=== PATIENT | male | born 1980 | race Two or more races ===

== ENCOUNTER 2020-08-25 06:57 | Emergency (ER) | payer MEDICARE, MEDICAID, SELFPAY ==
--- NOTE | ~2020-08-25 | XR_ITS ---
EXAMINATION: XR TOES, LEFT CLINICAL INFORMATION: Trauma to the fourth toes and fifth COMPARISON: None TECHNIQUE: 3 views of the left fourth and fifth toes were obtained. FINDINGS: There are no fractures or dislocations. No joint effusion is identified. No bone, joint or soft tissue abnormality is demonstrated. XR/XR toe LT min 2V IMPRESSION: Unremarkable examination.
[2020-08-25 07:00] VITALS: BP 123/69; BP 140/90; PULSE 78; PULSE 88; RESP 18; TEMP 36.4; O2SAT 95; O2SAT 99; BMI 28.0
[2020-08-25] MEDS: Acetaminophen 325 MG TABLET 650 MG PO (07:54)
--- NOTE | 2020-08-25 08:06 | ED.WOUNDLAC ---
HPI - Wound/Laceration General Chief Complaint: Wound/Laceration <MICHAEL Baca - Last Filed: 08/25/20 09:42> Stated Complaint: FOOT PAIN & BLEEDING S/P INJURY <MICHAEL Baca - Last Filed: 08/25/20 09:42> Time Seen by Provider: 08/25/20 07:59 <MICHAEL Baca - Last Filed: 08/25/20 09:42> Source: patient <MICHAEL Baca Last Filed: 08/25/20 09:42> Mode of arrival: ambulatory <MICHAEL Baca Last Filed: 08/25/20 09:42> Limitations: no limitations <MICHAEL Baca Last Filed: 08/25/20 09:42> History of Present Illness HPI narrative: 40 y/o male presenting with left 4th and 5th toe pain & laceration after he kicked a metal desk accidentally. He is able to ambulate but with a limp. He reports there was massive bleeding, it is controlled on arrival. He reports a deep cut in between his toes. He is up to date on his tetanus. He is able to move all of his toes. No other injuries. <MICHAEL Baca - Last Filed: 08/25/20 09:42> Onset (ago): minute(s) <MICHAEL Baca - Last Filed: 08/25/20 09:42> Extremity Location: left: foot <MICHAEL Baca Last Filed: 08/25/20 09:42> Place: home <MICHAEL Baca Last Filed: 08/25/20 09:42> Patient tetanus UTD: Yes <MICHAEL Baca Last Filed: 08/25/20 09:42> Context: accidental <MICHAEL Baca Last Filed: 08/25/20 09:42> Associated symptoms: pain <MICHAEL Baca Last Filed: 08/25/20 09:42> Treatments prior to arrival: bandage <MICHAEL Baca Last Filed: 08/25/20 09:42> Related Data Allergies/Adverse Reactions: Allergies Allergy/AdvReac Type Severity Reaction Status Date / Time zolpidem [From Ambien] AdvReac Nightmare Verified 08/25/20 07:05 <MICHAEL Baca - Last Filed: 08/25/20 09:42> Review of Systems Review of Systems: Constitutional: No Fever, No Chills Gastrointestinal: No Nausea, No Vomiting Musculoskeletal: + joint pain, No Myalgias Skin: + Skin Lesions, No rash Neuro: No Weakness, No Numbness Psych: No Anxiety/Panic, No Depression Heme/Lymph: No Bruising <MICHAEL Baca Last Filed: 08/25/20 09:42> [facility] Past Medical History Medical History: Medical History (Updated 08/26/20 @ 00:01 by Leonidas Palacios) Anxiety Bipolar 1 disorder Multiple personality disorder <MICHAEL Baca Last Filed: 08/25/20 09:42> Social History Social History: Social History Patient Tobacco Use Status: Current everyday Tobacco user Use of substances other than those prescribed or required for medical reasons: Yes Substance Use Type: Marijuana Substance Use Frequency: Daily Advance Directives: No Advance Directives Information Provided: No <MICHAEL Baca Last Filed: 08/25/20 09:42> Physical Exam Vital Signs: Vital Signs: Last Vital Signs Temp 97.6 F 08/25/20 07:00 Pulse 82 08/25/20 09:32 Resp 18 08/25/20 09:32 BP 125/77 08/25/20 09:32 Pulse Ox 97 08/25/20 09:32 Body Mass Index 28.0 Appearance: Alert. Oriented X3. No acute distress. HEENT: normal inspection CVS: Normal heart rate and rhythm. Pulses normal. Respiratory: No respiratory distress. Skin: Skin warm and dry. Normal skin color. Normal skin turgor. No rashes. Extremities: deep laceration of the web space involving digits 4 & 5. deep structures intact. full ROM of all digits. no ecchymosis, no point tenderness. no tarsal tenderness Neuro: Oriented X 3. No motor deficit. No sensory deficit. Ambulates with a limp <MICHAEL Baca Last Filed: 08/25/20 09:42> Vital Signs: Last Vital Signs Temp 97.6 F 08/25/20 07:00 Pulse 82 08/25/20 09:32 Resp 18 08/25/20 09:32 BP 125/77 08/25/20 09:32 Pulse Ox 97 08/25/20 09:32 Body Mass Index 28.0 <Aurelio Live MD - Last Filed: 09/29/20 07:51> Course Course Course Narrative: 40 y/o male presenting with laceration of the web space between 4th and 5th digits on left foot. Will get XR to assess for fracture. Normal tendon function. <MICHAEL Baca - Last Filed: 08/25/20 09:42> Reevaluation(s) Reevaluation #1: XR negative. Wound closed with 3 sutures. Counseled on wound care and signs of infection. Stable for discharge home. <MICHAEL Baca - Last Filed: 08/25/20 09:42> I have reviewed the chart <Aurelio Live MD - Last Filed: 09/29/20 07:51> Time: 07:51 <Aurelio Live MD - Last Filed: 09/29/20 07:51> Procedures Laceration Laceration 1: Side (If applicable): left <MICHAEL Baca - Last Filed: 08/25/20 09:42> Size (cm): 2.5 <MICHAEL Baca - Last Filed: 08/25/20 09:42> Description: linear <MICHAEL Baca - Last Filed: 08/25/20 09:42> Depth: simple, single layer <MICHAEL Baca - Last Filed: 08/25/20 09:42> Local Anesthetic: lidocaine 2% <MICHAEL Baca - Last Filed: 08/25/20 09:42> Amount of anesthesia used (mL): 3 <MICHAEL Baca - Last Filed: 08/25/20 09:42> Pre-repair: wound explored, irrigated extensively and deep structures intact <MICHAEL Baca - Last Filed: 08/25/20 09:42> Skin layer closed with: nylon <MICHAEL Baca - Last Filed: 08/25/20 09:42> Size (cm): 4-0 <MICHAEL Baca - Last Filed: 08/25/20 09:42> Number of sutures: 3 <MICHAEL Baca - Last Filed: 08/25/20 09:42> Technique: simple, interrupted <MICHAEL Baca Last Filed: 08/25/20 09:42> Critical Care Time Critical Care Time Critical Care Time: No <MICHAEL Baca Last Filed: 08/25/20 09:42> Discharge Plan Discharge Clinical Impression: Laceration <MICHAEL Baca Last Filed: 08/25/20 09:42> Patient Disposition: Home, Self-Care <MICHAEL Baca Last Filed: 08/25/20 09:42> Instructions: Laceration (ED) <MICHAEL Baca Last Filed: 08/25/20 09:42> Additional Instructions: X-ray today was normal. Keep wound clean and dry. Do not get wet for 24 hours. After that you can briefly wash with soap and water. Recommend Bacitracin two times per day. Sutures will need to be removed in 10 days. Come back here or follow up with your doctor. Elevate and ice when able. Take Motrin and/or Tylenol as needed for pain. If you notice signs of infection including increased pain, swelling, redness or drainage of pus come back to the ER for further evaluation. <MICHAEL Baca - Last Filed: 08/25/20 09:42> Interventions: ED Discharge Assessment Last Done: 08/25/20 09:34 <MICHAEL Baca Last Filed: 08/25/20 09:42> Discharge Date/Time: 08/25/20 09:35 <MICHAEL Baca Last Filed: 08/25/20 09:42>
[2020-08-25] MEDS: oxyCODONE HCl Immed Release 5 MG TABLET PO (08:15)
[2020-08-25] MEDS: Lidocaine HCl 2 % MPF 5 ML VIAL INFILTRATI (09:28)
[2020-08-25 09:32] VITALS: BP 125/77; PULSE 82; RESP 18; O2SAT 97
== END 2020-08-25 09:35 | disposition home or self-care (01) ==
PROVIDERS: Emergency Provider Emergency Medicine; PCP Nurse Practitioner Family
DX: S91.312A Laceration without foreign body, left foot, initial encounter (principal); W22.09XA Striking against other stationary object, initial encounter; Y93.9 Activity, unspecified; Y92.009 Unspecified place in unspecified non-institutional (private) residence as the place of occurrence of the external cause; Y99.9 Unspecified external cause status
CPT/HCPCS: 12001; 73660; 99284

== ENCOUNTER 2022-11-26 01:50 | Emergency (ER) | payer OTHER, SELFPAY ==
[2022-11-26 02:11] VITALS: BP 127/76; PULSE 85; RESP 18; TEMP 36.7; O2SAT 97; BMI 28.2
[2022-11-26 03:37] VITALS: BP 113/70; PULSE 65; RESP 15; O2SAT 97
--- NOTE | 2022-11-26 03:46 | ED_ITS ---
HPI - General Adult General Chief complaint: Neck Pain/Injury Stated complaint: Pain/ weakness to right side Time Seen by Provider: 11/26/22 03:44 Source: patient Mode of arrival: ambulatory Limitations: no limitations History of Present Illness HPI narrative: Patient with chronic musculoskeletal pain disorder followed by pain clinic gets steroid shots comes here for similar pain for going on for last 2 weeks spe cially on the right rhomboids area taking Tylenol without much relief no recent injury no recent injury or trauma pain is localized in the right upper back where patient received cortisone shots before Related Data Previous Rx's Medication Instructions Recorded cyclobenzaprine 10 mg tablet 10 mg PO Q8H #20 tabs 11/26/22 tramadol 50 mg tablet 50 mg PO Q6H PRN pain #20 tabs 11/26/22 Allergies Allergy/AdvReac Type Severity Reaction Status Date / Time zolpidem [From Ambien] AdvReac Nightmare Verified 08/25/20 07:05 Review of Systems Review of Systems: Yes all other systems are reviewed and are negative [facility] Past Medical History Medical History Multiple personality disorder Bipolar 1 disorder Anxiety Social History Social History Patient Tobacco Use Status: Current everyday Tobacco user Substance Use Type: Marijuana Advance Directives: No Advance Directives Information Provided: No Physical Exam ED Vital Signs: Vital Signs - 24 hr 11/26/22 02:11 11/26/22 03:37 Temperature 98.0 F Pulse Rate 85 65 Respiratory Rate 18 15 Blood Pressure 127/76 113/70 Pulse Oximetry 97 97 Oxygen Delivery Method Room Air Room Air BMI result Body Mass Index 28.2 Appearance: Alert. Oriented X3. No acute distress. Eyes: PERRLA, No Nystagmus ENT: Pharynx normal. Oral Mucosa moist Neck: Normal inspection. Neck supple. CVS: Normal heart rate and rhythm. Pulses normal. Respiratory: No respiratory distress. Equal air entry bilateral, Abdomen: Soft and nontender. Bowel sounds are present, Skin: Skin warm and dry. Normal skin color. Normal skin turgor. Back: Diffuse tenderness R rhomboids area Extremities: No lower extremity edema. No calf tenderness Neuro: Oriented X 3. No motor deficit. No sensory deficit.No cerebellar signs , cranial nerves II-XII intact Medications Administered Discontinued Medications Generic Name Dose Route Start Last Admin Trade Name Freq PRN Reason Stop Dose Admin Cyclobenzaprine HCl 10 mg 11/26/22 03:54 11/26/22 04:25 Cyclobenzaprine Hcl 10 Mg Tablet PO 11/26/22 03:55 Not Given ONCE ONE Tramadol HCl 50 mg 11/26/22 03:54 11/26/22 04:25 Tramadol Hcl 50 Mg Tablet PO 11/26/22 03:55 Not Given ONCE ONE Medical Decision Making Medical Decision Making [facility] Narrative: Patient With chronic muscular disorder discharge patient home on tramadol advised to follow-up with pain clinic Patient was unhappy as did not get any strong pain medication. Patient advised to continue gabapentin and use muscle relaxants as prescribed and follow-up with PCP/Pain Clinic Discharge Plan Discharge Clinical Impression: Chronic musculoskeletal pain Patient Disposition: Home, Self-Care Instructions: Pain Management (ED) Additional Instructions: Take pain medication and relaxant as prescribed and follow with pain clinic Prescriptions: New cyclobenzaprine 10 mg tablet 10 mg PO Q8H Qty: 20 0RF tramadol 50 mg tablet 50 mg PO Q6H PRN (Reason: pain) Qty: 20 0RF Interventions: ED Discharge Assessment Last Done: 11/26/22 04:27 Discharge Date/Time: 11/26/22 04:28
--- NOTE | 2022-11-26 04:25 | PC.NURSE ---
pt agressive with staff, states we are treating him like a joke and the doctor should read his chart before giving him meds, this RN explained the medicine prescribed is pain medicine and the pt needs to follow up outpatient for chronic pain management, pt stated he is going to file a medical complaint against the hospital, cupola charger made aware
== END 2022-11-26 04:28 | disposition home or self-care (01) ==
PROVIDERS: Emergency Provider Internal Medicine; PCP Nurse Practitioner Family
DX: M79.18 Myalgia, other site (principal)
CPT/HCPCS: 99282; 99283

== ENCOUNTER 2023-07-31 08:59 | Outpatient (AMB) | payer MEDICARE, SELFPAY ==
[2023-07-31 09:09] VITALS: BP 130/72; PULSE 75; RESP 15; O2SAT 99; BMI 28.0
--- NOTE | 2023-07-31 09:09 | A.OFFVIS_ITS ---
Vital Signs 07/31/23 09:09 Height 5 ft 5 in Weight 168 lb BMI 28.0 BP 130/72 Blood Pressure Location Lt brachial Position Sitting Respiration 15 Pulse 75 Pulse Source Pulse Oximeter Pulse Oximetry (%) 99 Oxygen Delivery Method Room Air Intake Visit Reasons: PLEASE EVALUATE FOR POSSIBLE TFESI Allergies zolpidem [From Ambien] Adverse Reaction (Verified 07/31/23 09:11) Nightmare Medication List - Last Reconciled 07/31/23 by Surekha Padgett LPN cyclobenzaprine 10 mg PO Q8H tramadol 50 mg PO Q6H PRN HPI HPI PLEASE EVALUATE FOR POSSIBLE TFESI: Details: 43-year-old male who presents today to the office for an evaluation of neck pain. The patient was referred to us by Dr. Romero for consideration of a cervical epidural steroid injection. He presents today with a long-standing history of bilateral neck and shoulder pain that radiates down his arms up to his elbows. It is described as an aching, stabbing sensation associated with pins and needles, and numbness is rated at 10/10 in intensity. He is unable to sleep normally. He is using cervical pillows at night. He is currently homeless and typically does not have access to that anyway. He had a rotator cuff injury in the past. 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 The pain is described as 10/10 in the morning and evening tends to be a little bit better during the mid-day when it is about 7/10 movements. Whether changes make it worse. He has been doing physical therapy exercises at home. He had trigger point injections, facet injections, and JING once in the past. He recalls that the cervical epidural injection did help him. [facility] Medical History Multiple personality disorder Bipolar 1 disorder Anxiety Social History Patient Tobacco Use Status: Current everyday Tobacco user Substance Use Type: Marijuana Review of Systems Const All systems reviewed & are unremarkable except as noted in HPI and below Physical Exam Vital Signs: Last Vital Signs Pulse 75 07/31/23 09:09 Resp 15 07/31/23 09:09 BP 130/72 07/31/23 09:09 Pulse Ox 99 05/20/24 09:09 Oxygen Delivery Method Room Air 07/31/23 09:09 BMI result Body Mass Index 28.0 General: Appears afebrile. Alert and oriented. Mood and affect appropriate. Follows and participates in conversation appropriately. Respiratory effort is unlabored. Able to transition from sit to stand unassisted. Ambulates with bilaterally normal heel strike and toe off. Neck range of motion is limited. Cervical extension reproduces pain in the neck. Left is worse than right. Office Procedures Cervical/Thoracic Facet Inj Details: Therapeutic Cervical Facet Injection, ultrasound guided, Bilateral, C4-C5-C6. After obtaining written consent, pre-procedure blood pressure and pulse were recorded and are in the nursing record for review. The patient was placed in the lateral position. The respective cervical area was prepped with chloraprep. A 25 gauge 1.5 inch needle was inserted into the target medial branch nerve under ultrasound guidance, which was used to count and identify the articular pillars. No paresthesias were elicited with needle placement and aspiration was negative for blood and CSF.? 1 ml ropivacaine mixed with 1.5 mg dexamethasone (1 cc total per level) was injected under live visualization. The identical procedure was performed at the remaining levels. The skin was cleansed and a sterile bandage was applied. Following the procedure the patient's vital signs were stable. The patient tolerated the procedure well and no complications were encountered. Following the procedure the patient's vital signs were stable. The patient was discharged home in good condition with post-procedural instructions. Time Out: Immediately prior to the procedure, the following was verbally confirmed that there is a signed consent form and that the correct patient, planned procedure, site and side are consistent with documentation and that necessary equipment and/or blood products are available prior to the start of the case. An ultrasound image of the injection was taken and stored in the permanent record. Additional procedure code (CPT) needed Joint Injection/Drain Coding Procedure code (CPT) selection complete Results Reviewed Results Reviewed: An MRI of the cervical spine shows a left paracentral C6-7 disc herniation with left C5-6 foraminal stenosis. Left central disc herniations at C2-3 and C3-4 without encroachment upon the cervical collar exiting nerve. At C 6-7, there is a small central disc herniation without central final stenosis. Assessment & Plan Assessment & Plan (1) Cervical spondylosis: Code(s): M47.812 - Spondylosis without myelopathy or radiculopathy, cervical region Category: Medical (2) Cervical radiculitis: Code(s): M54.12 - Radiculopathy, cervical region Category: Medical Plan Patient is status post therapeutic cervical facet injections, ultrasound guided, bilateral, C4-C5-C6 for his axial facet mediated neck pain. Patient tolerated procedure well and was discharged home in stable condition with discharge instructions.? All questions were answered. For his cervical radicular symptoms, we will schedule him for a C7-T1 left parasaggital interlaminar JING. Discussed the risks and benefits of the procedure with the patient in detail. All questions were answered. The patient is on board with the plan. Justification for interventional therapy: ? Patient with average pain > 6/10 ? Patient has exhausted conservative therapy ? Patient unable to tolerate physical therapy due to pain ? Reported previous JING in the past provided good relief. . Patient has a good understanding of their pain condition and has appropriate mental and social support Scribed for Dr. Vazquez by Chau Levine, medical staff director, on 07/31/2023. I, Dr. Vazquez, have personally reviewed and agree with the information entered by the scribe. Coding Level of Care Code New Pt Level 4 (18463) Diagnoses Cervical spondylosis M47.812 Cervical radiculitis M54.12
== END 2023-07-31 10:59 | disposition home or self-care (01) ==
PROVIDERS: PCP Nurse Practitioner Family; Referring Provider Physical Medicine & Rehabilitation; Visit Provider Internal Medicine
DX: M47.812 Spondylosis without myelopathy or radiculopathy, cervical region (principal); M54.12 Radiculopathy, cervical region
CPT/HCPCS: 64490; 64491; 99204

== ENCOUNTER → 2023-07-31 08:59 | Outpatient (BNVA) | payer MEDICARE, SELFPAY | PROVIDERS: PCP Nurse Practitioner Family; Referring Provider Physical Medicine & Rehabilitation; Visit Provider Internal Medicine | DX: M47.22 Other spondylosis with radiculopathy, cervical region (principal) | CPT/HCPCS: 64490; 64491; 99202; J2795 ==

== ENCOUNTER 2023-08-17 06:07 | Outpatient (REF) | payer MEDICARE, SELFPAY ==
--- NOTE | ~2023-08-17 | FL_ITS ---
EXAMINATION: XR FLUOROSCOPY WITH IMAGES CLINICAL INFORMATION: Cervical radiculopathy. COMPARISON: None available. TECHNIQUE: Fluoroscopy Supervised By: Dr. Vazquez. Fluoroscopy Time: 0.3 min. Cumulative Dose: 1.98 mGy. DAP: [id number] mGym2. Images: 6. FINDINGS: Intraoperative fluoroscopy and spot films were performed during a procedure in the OR. Spinal needle is seen overlying the region of the lower cervical spine with contrast injected, which appears to be in the epidural space. Exact level cannot be ascertained because of marked coning of the images. Please see Dr. Vazquez' report for complete details. FL/FL guidance in treatment room IMPRESSION: Intraoperative fluoroscopy and spot films were obtained. Please see Dr. Vazquez' report for complete details.
== END 2023-08-17 06:08 | disposition home or self-care (01) ==
LOC: CF 06:07
PROVIDERS: Visit Provider Internal Medicine
DX: M54.12 Radiculopathy, cervical region (principal)
CPT/HCPCS: 62321; J1100; Q9967

== ENCOUNTER 2023-08-17 08:14 | Outpatient (AMB) | payer MEDICARE, SELFPAY ==
[2023-08-17 08:20] VITALS: BP 110/64; PULSE 88; RESP 16; O2SAT 98; BMI 28.0
--- NOTE | 2023-08-17 08:20 | A.OFFVIS_ITS ---
Vital Signs 08/17/23 08:20 08/17/23 09:27 Height 5 ft 5 in Weight 168 lb BMI 28.0 BP 110/64 114/68 Blood Pressure Location Lt brachial Lt brachial Position Sitting Sitting Respiration 16 16 Pulse 88 73 Pulse Source Pulse Oximeter Pulse Oximeter Pulse Oximetry (%) 98 96 Oxygen Delivery Method Room Air Room Air Comment Pre-Op Post-Op Intake Visit Reasons: Left C7-T1 interlaminar JING Allergies zolpidem [From Ambien] Adverse Reaction (Verified 07/31/23 09:11) Nightmare HPI HPI Left C7-T1 interlaminar JING: Details: Patient presents for scheduled procedure. Denies any recent cough, cold, infection, fever or other significant changes in medical history since last office visit. [facility] Medical History Multiple personality disorder Bipolar 1 disorder Anxiety Social History Patient Tobacco Use Status: Current everyday Tobacco user Substance Use Type: Marijuana Physical Exam Vital Signs: Last Vital Signs Pulse 88 08/17/23 08:20 Resp 16 08/17/23 08:20 BP 110/64 08/17/23 08:20 Pulse Ox 98 08/17/23 08:20 Oxygen Delivery Method Room Air 08/17/23 08:20 BMI result Body Mass Index 28.0 Office Procedures Joint Injection/Drain Joint Injection/Drain Details: Interlaminar epidural steroid injection, C7-T1, midline After obtaining written consent, pre-procedure blood pressure and heart rate were stable and recorded in the nursing record. The patient was placed in the prone position. The cervicothoracic area was widely prepped with chloraprep and draped in sterile fashion. Fluoroscopic guidance was used to identify the desired interlaminar space and for needle placement. Subcutaneous 0.5% lidocaine was used to anesthetize the skin overlying the target. A 20-gauge Overton needle was advanced to the epidural space using loss of resistance to contrast technique under fluoroscopic AP and contralateral oblique views. There was no evidence of heme or CSF and no paresthesias were elicited with needle placement. Confirmation of epidural needle placement was performed with 1cc of omnipaque 180. Next 3 ml normal saline mixed with 10 mg dexamethasone was administered epidurally with no pain elicited on injection. The needle was removed, skin cleansed and a sterile bandage was applied. The patient tolerated the procedure well and no complications were encountered. Following the procedure the patient's vital signs were stable. The patient was discharged home in good condition with post-procedural instructions. Time Out: Immediately prior to the procedure, the following was verbally confirmed that there is a signed consent form and that the correct patient, planned procedure, site and side are consistent with documentation and that necessary equipment and/or blood products are available prior to the start of the case. Complications: none EBL: <2 cc Coding 56142 - Cervical Epidural/Interlaminar with fluoroscopy Procedure code (CPT) selection complete Assessment & Plan Assessment & Plan (1) Cervical radiculitis: Code(s): M54.12 - Radiculopathy, cervical region Category: Medical Plan Patient is status post midline C7-T1 interlaminar JING. Patient tolerated procedure well and was discharged home in stable condition with discharge instructions. All questions were answered. We will follow-up via telephone or in clinic to assess response to therapy. A follow-up appointment was made during today's visit. Orders: Orders FL guidance in treatment room Today M54.12 - Radiculopathy, cervical region Coding Level of Care Code Procedure Only Diagnoses Cervical radiculitis M54.12 CPT Codes Coding - Joint 10: 37836 - Cervical Epidural/Interlaminar with fluoroscopy ([id number])
[2023-08-17 09:27] VITALS: BP 114/68; PULSE 73; RESP 16; O2SAT 96
== END 2023-08-17 09:25 | disposition home or self-care (01) ==
LOC: HO.PMCPRC 08:14
PROVIDERS: PCP Nurse Practitioner Family; Visit Provider Internal Medicine
DX: M54.12 Radiculopathy, cervical region (principal)
CPT/HCPCS: 62321

== ENCOUNTER 2023-09-15 08:59 | Outpatient (AMB) | payer MEDICARE, SELFPAY ==
--- NOTE | 2023-09-15 09:10 | MHC.OFFVIS ---
Vital Signs 09/15/23 09:11 Height 5 ft 5 in Weight 164 lb BMI 27.3 BP 107/56 L Blood Pressure Location Lt brachial Position Sitting Respiration 14 Pulse 74 Pulse Source Pulse Oximeter Pulse Oximetry (%) 98 Oxygen Delivery Method Room Air Intake Visit Reasons: s/p Left C7-T1 interlaminar JING Allergies zolpidem [From Ambien] Adverse Reaction (Verified 09/15/23 09:13) Nightmare Medication List - Last Reconciled 09/15/23 by Surekha Padgett LPN cyclobenzaprine 10 mg PO Q8H tramadol 50 mg PO Q6H PRN HPI HPI s/p Left C7-T1 interlaminar JING: Details: 43-year-old male who presents today to the office for a status post C7-T1 interlaminar JING. The patient reports 90% relief following the procedure. He had significant relief and has been moving with relief. He is able to lift from his right side. He reports feeling the same pain on the left side now, though it is present somewhat lower on his chest wall. The pain is not localized to one spot. He is experiencing stabbing pain in his back that radiates down from his neck. He describes his pain as ?someone stabbing with knives. He denies any numbness or paresthesia in his arm or hands. He has been doing physical therapy. Past procedures 08/17/23: Interlaminar epidural steroid injection, C7-T1, midline: 90% relief, with resolution of right upper arm symptoms. 07/31/23: Therapeutic Cervical Facet Injection, ultrasound guided, Bilateral, C4-C5-C6: Moderate temporary relief. PENDING SALE TO [facility] Medical History Multiple personality disorder Bipolar 1 disorder Anxiety Social History Patient Tobacco Use Status: Current everyday Tobacco user Substance Use Type: Marijuana Review of Systems Const All systems reviewed & are unremarkable except as noted in HPI and below Physical Exam Vital Signs: Last Vital Signs Pulse 74 09/15/23 09:11 Resp 14 09/15/23 09:11 BP 107/56 L 09/15/23 09:11 Pulse Ox 98 09/15/23 09:11 Oxygen Delivery Method Room Air 09/15/23 09:11 BMI result Body Mass Index 27.3 General: Appears afebrile. Alert and oriented. Mood and affect appropriate. Follows and participates in conversation appropriately. Respiratory effort is unlabored. Able to transition from sit to stand unassisted. Ambulates with bilaterally normal heel strike and toe off. Cervical extension reproduces pain. Cervical range of motion is painful. Pain is in the axial neck. No radiation in the left arm. Results Reviewed Results Reviewed: No imaging is available for review. Assessment & Plan Assessment & Plan (1) Cervical spondylosis: Code(s): M47.812 - Spondylosis without myelopathy or radiculopathy, cervical region Category: Medical Plan Discussed two rounds of diagnostic injections in anticipation of radiofrequency ablation as a possible treatment option for axial neck pain secondary to cervical spondylosis, more so on the left side. We will schedule him for a left C4-C5-C6 diagnostic medial branch blocks, 2 rounds 1 week apart. Discussed the risks and benefits of the procedure with the patient in detail. All questions were answered. The patient is on board with the plan. Justification for interventional therapy: ? Patient with average pain > 6/10 ? Patient has exhausted conservative therapy ? Patient unable to tolerate physical therapy due to pain. . Patient has a good understanding of their pain condition and has appropriate mental and social support Scribed for Dr. Vazquez by Chau Levine, medical reception, on 09/15/2023. I, Dr. Vazquez, have personally reviewed and agree with the information entered by the scribe. Coding Level of Care Code Est Pt Level 4 (18861) Diagnoses Cervical spondylosis M47.812
[2023-09-15 09:11] VITALS: BP 107/56; PULSE 74; RESP 14; O2SAT 98; BMI 27.3
== END 2023-09-15 10:21 | disposition home or self-care (01) ==
PROVIDERS: PCP Nurse Practitioner Family; Visit Provider Internal Medicine
DX: M47.812 Spondylosis without myelopathy or radiculopathy, cervical region (principal)
CPT/HCPCS: 99214

== ENCOUNTER → 2023-09-15 08:59 | Outpatient (BNVA) | payer MEDICARE, SELFPAY | PROVIDERS: PCP Nurse Practitioner Family; Visit Provider Internal Medicine | DX: M47.812 Spondylosis without myelopathy or radiculopathy, cervical region (principal); Z98.890 Other specified postprocedural states | CPT/HCPCS: 99212 ==

== ENCOUNTER 2023-10-06 09:28 | Outpatient (AMB) | payer MEDICARE, SELFPAY ==
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
[2023-10-06 09:37] VITALS: BP 117/66; PULSE 64; O2SAT 97; BMI 28.0
== END 2023-10-06 10:22 | disposition home or self-care (01) ==
PROVIDERS: PCP Physical Medicine & Rehabilitation; Referring Provider Physical Medicine & Rehabilitation; Visit Provider Internal Medicine
DX: M54.12 Radiculopathy, cervical region (principal); M47.812 Spondylosis without myelopathy or radiculopathy, cervical region
CPT/HCPCS: 99214

== ENCOUNTER → 2023-10-06 09:28 | Outpatient (BNVA) | payer MEDICARE, SELFPAY | PROVIDERS: Visit Provider Internal Medicine | DX: M54.12 Radiculopathy, cervical region (principal); M47.812 Spondylosis without myelopathy or radiculopathy, cervical region | CPT/HCPCS: 99212 ==

== ENCOUNTER 2023-10-12 06:28 | Outpatient (REF) | payer MEDICARE, SELFPAY ==
--- NOTE | ~2023-10-12 | FL_ITS ---
EXAMINATION: XR FLUOROSCOPY WITH IMAGES CLINICAL INFORMATION: Cervical radiculopathy. COMPARISON: 08/17/2023. TECHNIQUE: Fluoroscopy provided to: Dr. Vazquez Fluoroscopy time: 0.0 minutes DAP: 0.29415 mGycm2 Images: 2 FINDINGS: 2 images demonstrate left sided C3-C5 needles in place left laterally, and subsequent left C3, C4, and C5 nerve root sheath injections of contrast. FL/FL guidance in treatment room IMPRESSION: Fluoroscopic guidance. Please refer to the full operative report for details. Electronically signed by: Ramon Salinas MD 12/07/2023 03:33 PM EDT
== END 2023-10-12 06:29 | disposition home or self-care (01) ==
LOC: CF 06:28
PROVIDERS: Visit Provider Internal Medicine
DX: M47.22 Other spondylosis with radiculopathy, cervical region (principal)
CPT/HCPCS: 64490; 64491; J2795; Q9967

== ENCOUNTER 2023-10-12 13:20 | Outpatient (AMB) | payer MEDICARE, SELFPAY ==
--- OUTSIDE RECORDS SUMMARY | 2023-10-12 13:22 | XMS_ITS | Continuity of Care Document ---
Author Organization [facility] Address [address] [place] [address]- Care Team Providers Care Simplex Operator Name Role Phone Ragini Dumont NP Primary Care Physician [phone] Encounter [facility] [place] [place] Date(s): 06/19/20 - 07/19/20 [facility] [address] [place] [id number] Allergies, Adverse Reactions, Alerts Substance Reaction Severity Status Ambien Active Immunizations Given and Recorded Vaccine Date Status Refusal Reason tetanus/diphtheria/pertussis, acel(Tdap) 08/17/14 Given Medications bacitracin topical 500 u/gm ointment 1 applicator, Topically, 2 times a day, # 30 Gm, 0 Refills, Maintenance, 08/17/14 14:24:36 Start Date: 08/17/14 Stop Date: 08/22/14 Status: Ordered clindamycin 1% topical gel Topically, 2 times a day, 0 Refills, Maintenance, 05/28/20 10:10:00 EDT, Partial fill upon patient request if the prescription is for a schedule II opioid drug. Start Date: 05/28/20 Status: Ordered Diclofenac = 50 mg, By Mouth, 2 times a day, 0 Refills, Maintenance, 05/08/19 8:56:00 EST Start Date: 05/08/19 Status: Ordered Vitamin D 30094 iu oral capsule See Instructions, 50,000 International_Units By Mouth Daily, Refills 0, Maintenance, 07/06/20 8:29:00 EDT, Instructions Replace Required Details, Partial fill upon patient request if the prescriptionis for a schedule II opioid drug. Start Date: 07/06/20 Status: Ordered Problem List Condition Effective Dates Status Health Status Inform ant Anxiety disorder, generalized(Confirmed) Active Bipolar I disorder, moderate , current or most recent episode depressed, with psychotic features, with seasonal pattern(Confirmed) Active Dissociative identity disorder(Confirmed) Active Myofascial pain(Confirmed) Active PTSD (post-traumatic stress disorder)(Confirmed) Active Social History Social History Type Response Smoking Status Current every day rosaline cordova; Tobacco user in household: No entered on: 08/27/14 Sex
--- OUTSIDE RECORDS SUMMARY | 2023-10-12 13:22 | XMS_ITS | Continuity of Care Document ---
Author Organization [facility] Address [address] [place] [address]- Care Team Providers Care Kitchen Steward/Stewardess Name Role Phone Ragini Dumont NP Primary Care Physician [phone] [facility] [place] Date(s): 07/06/20 - 08/05/20 [facility] [address] [place] [id number] Attending Physician: Anthony Michelle Admitting Physician: Anthony Michelle Referring Physician: Anthony Michelle Allergies, Adverse Reactions, Alerts Substance Reaction Severity [...] Start Date: 05/08/19 Status: Ordered Vitamin D 47589 iu oral capsule See Instructions, 50,000 International_Units [...]
--- OUTSIDE RECORDS SUMMARY | 2023-10-12 13:22 | XMS_ITS | Continuity of Care Document ---
Author Organization [facility] Address [address] [place] [address]- Care Team Providers Care Weld Technician Name Role Phone Julia MCGEE, Ragini Primary Care Physician [phone] Encounter [facility] Date(s): 03/16/22 - 03/16/[address] [address]- Discharge Disposition: A-D/C Home Attending Physician: Jose R Raymond MD Admitting Physician: Jose R Raymond MD Referring Physician: Not on Staff, Referring MD Allergies, Adverse Reactions, Alerts Substance Reaction Severity Status Ambien Active Immunizations Given and Recorded Vaccine Date Status Refusal Reason tetanus/diphtheria/pertussis, acel(Tdap) 08/17/14 Given Medications bacitracin topical 500 u/gm ointment 1 applicator, Topically, 2 times a day, # 30 Gm, 0 Refills, Maintenance, 08/17/14 14:24:36 Start Date: 08/17/14 Stop Date: 08/22/14 Status: Ordered Diclofenac = 50 mg, By Mouth, 2 times a day, 0 Refills, Maintenance, 05/08/19 8:56:00 EST Start Date: 05/08/19 Status: Ordered gabapentin 800 mg oral tablet See Instructions, 1 tablet 3x/day and 2 tablets at bedtime, # 450 tablet, 1 Refills, Maintenance, 01/21/22 12:38:00 EST, [facility][id number], dose increase, 167, cm, 12/15/21 14:24:00 EDT, Height Start Date: 01/21/22 Status: Ordered mupirocin 2% topical cream 1 application, Topically, 3 times a day, for 10 days, # 15 Gm, 0 Refills, Acute 03/26/22 21:14:00 EST, 03/16/22 21:14:00 EST, Cream, [facility] #[id number], Partial fill upon patient request if the prescription is for a schedule II opioid drug.,... Start Date: 03/16/22 Stop Date: 03/26/22 Status: Ordered topiramate 100 mg oral tablet See Instructions, 1 tablet By Mouth 3 times a day and 2 tablets at bedtime 90 days, # 450 tablet, 1Refills, Maintenance, 01/21/22 12:39:00 EST, Tablet, [facility] #[id number], 167, cm, 12/15/2213:24:00 EDT, Height Start Date: 01/21/22 Status: Ordered Vitamin D 52222 iu oral capsule See Instructions, 15,000 International_Units By Mouth Daily, Refills 0, Maintenance, 07/06/20 8:29:00 EDT, Instructions Replace Required Details, Partial fill upon patient request if the prescriptionis for a schedule II opioid drug. Start Date: 07/06/20 Status: Ordered Problem List Condition Confirmation Course Effective Dates Status Health St atus Informant Anxiety disorder, generalized Confirmed Active Bipolar I disorder, moderate, current or most recent episode depressed, with psychotic features, with seasonal pattern Confirmed Active Dissociative identity disorder Confirmed Active Myofascial pain Confirmed Active PTSD (post-traumatic stress disorder) Confirmed Active Vital Signs Most recent to oldest [Reference Range]: 1 2 3 Height 168 cm (03/16/22 9:23 PM) 168 cm (03/16/22 8:05 PM) 168 cm (03/16/22 8:03 PM) Weight 74.5 kg (03/16/22 9:23 PM) 74.5 kg (03/16/22 8:05 PM) 74.5 kg (03/16/22 8:03 PM) Oxygen Saturation [94-100 %] 98 % (03/16/22 9:23 PM) 96 % (03/16/22 8:03 PM) Pulse Rate [55-90 bpm] 78 bpm (03/16/22 9:23 PM) 70 bpm (03/16/22 8:03 PM) Body Mass Index [18.5-24.99 kg/m2] 26.4 kg/m2 *H* (03/16/22 9:23 PM) 26.4 kg/m2 *H* (03/16/22 8:03 PM) Blood Pressure [90-138/55-84 mm Hg] 104/68mm Hg (03/16/22 9:23 PM) 119/71mm Hg (03/16/22 8:03 PM) Respiratory Rate [16-30 br/min] 18 br/min (03/16/22 9:23 PM) 18 br/min (03/16/22 8:03 PM) Temperature [96.8-100.4 DegF] 98.8 DegF (03/16/22 8:03 PM) Mode of Delivery (Oxygen) Room air (03/16/22 9:23 PM) Room air (03/16/22 8:03 PM) Blood pressure sites Arm, left (03/16/22 9:23 PM) Arm, right (03/16/22 8:03 PM) Temperature Route Oral (03/16/22 8:03 PM) Dry Weight 74.5 kg (03/16/22 9:23 PM) 74.5 kg (03/16/22 8:05 PM) 74.5 kg (03/16/22 8:03 PM) Weight Obtained Via Standing scale (03/16/22 8:03 PM) Social History Social History Type Response Smoking Status Current every day sm tasha; Tobacco user in household: No entered on: 08/27/14 Sex Note * Mandi KING, Jose R Mclean: PERFORM Event Display: Patient Education Leaflets Authored Date: [id number] Second-Degree Burn (Partial-Thickness Burn) ?? [id number] Second-Degree Burn (Partial-Thickness Burn) A burn occurs when skin is exposed to too much heat, sun, or harsh chemicals. A second-degree burn (partial-thickness burn) is deeper than a first-degree burn (superficial burn). It usually causes a blister to form. The blister may remain intact and gradually go away on its own. Or it may break open. The goal of treatment is to relieve pain and stop infection while the burn heals. Home care Use pain medicine as directed. If no pain medicine was prescribed, you may use shir-fbz-ncixqqx medicine to control pain. If you have chronic liver or kidney disease, stomach ulcers, or digestive bleeding, talk with your healthcare provider before using acetaminophen, naproxen, or ibuprofen. General care ??? On the first day, you may put a cool compress on the wound to ease pain. A cool compress is a small towel soaked in cool water. Don't use ice as it can cause more damage. ??? If you were sent home with the blister intact, don't break the blister. The risk for infection is greater if the blisterbreaks. But the blister may break on its own. Don't worry if this happens. ??? If a bandage was applied, change it once a day, unless told otherwise. If the bandage becomes wet or soiled, change it as soon as you can. ??? Sometimes an infection may occur even with proper treatment. Check the burn daily for the signs of infection that are listed below. ??? Eat more calories and protein until your w ound is healed. This is more important if you have a very large burn. ??? Wear a hat, sunscreen, and long sleeves while in the sun to protect the skin. ??? Don't pick or scratch at the wound. Keep your fingernails trimmed short. Use ecxw-fbc-uzsbzxj medicines like diphenhydramine for itching. ??? Don't wear tight-fitting clothes. To change a bandage: ??? Wash your hands. ??? Take off the old bandage. If the bandage sticks, soakit off under clean running water. Put the used bandage in a plastic bag, tie the top, and dispose of it. ??? Once the bandage is off, gently wash the burn area with mild soap and clean running water to remove any cream, ointment, ooze, or scab. You may do this in a sink, under a tub faucet, or in th e shower. Rinse off the soap and gently pat dry with a clean towel. ??? Check for signs of infection that are listed below. ??? Put any prescribed antibiotic cream or ointment on the wound. ??? Coverthe burn with nonstick gauze. Then wrap it with the bandage material. ?? Follow-up care Follow up with your healthcare provider as advised. ?? When to get medical care Call your healthcare provider right away if you have any of these signs of infection: ??? Fever of 100.4??F (38??C) or higher, or as advised by your provider ??? Pain that gets worse ??? Redness or swelling that gets worse ??? Pus coming out of the burn ??? Red streaks in your skin coming from the burn ??? Wound doesn't seem to be healing ??? Nausea or vomiting? Last Reviewed Date: 2021 ?? [employer]. All rights reserved. This information is not intended as a substitute for professional medical care. Always follow your healthcare professional's instructions. ?? Patient Care team information Care Team Personnel Name: Ragini Dumont NP Position: [facility] Outreach Member Role: PCP Address: Address: [address] [place] [address] [place] [address]- Name: Tia Pandya Position: [facility] RN Member Role: Primary Care Nurse Name: Ivis Trent Position: [facility] RN Member Role: Primary Care Nurse Name: Jose R Raymond MD Position: [facility] ED Medicine MD Member Role: Admitting Physician Address: Address: [address] [place] [address] [place] [address]- [place] Name: Zenobia Vincent RN Position: [facility] ED RN W/OE and Tasks Member Role: Patient Care Provider Care Team Related Persons Name: MARITZA ISAAC Address: home [address] [place] [address] Name: REAGAN WEST Address: home [address] [place] [address]
--- OUTSIDE RECORDS SUMMARY | 2023-10-12 13:22 | XMS_ITS | Continuity of Care Document ---
Author Organization [facility] Address [address] [place] [address]- Care Team Providers Care Motion Picture Set Grip Name Role Phone Ragini Dumont NP Primary Care Physician [phone] Encounter [facility] [place] Date(s): 10/06/20 - 11/05/20 [facility] [address] [place] [address]- Attending Physician: Anthony Michelle Admitting Physician: Anthony [...] Start Date: 05/08/19 Status: Ordered Vitamin D 80089 iu oral capsule See Instructions, 50,000 International_Units [...]
--- OUTSIDE RECORDS SUMMARY | 2023-10-12 13:22 | XMS_ITS | Continuity of Care Document ---
Author Organization [facility] Address [address] [place] [address]- Care Team Providers Care Base Draw Operator Name Role Phone Julia MCGEE, Ragini Primary Care Physician Encounter [facility] Date(s): 03/10/20 - 04/09/20 [facility] [address] [place] [id number] Allergies, Adverse Reactions, Alerts Substance Reaction [...] 8:56:00 EST Start Date: 05/08/19 Status: Ordered Problem List Condition Effective Dates Status Health Status Inform ant Anxiety disorder, generalized(Confirmed) Active Bipolar I disorder, moderate , current or most recent episode depressed, with psychotic features, with seasonal pattern(Confirmed) Active Dissociative identity disorder(Confirmed) Active PTSD (post-traumatic stress disorder)(Confirmed) Active Social History Social History Type Response Smoking Status Current every day sm oker; Tobacco user in household: No entered on: 08/27/14 Sex
--- OUTSIDE RECORDS SUMMARY | 2023-10-12 13:22 | XMS_ITS | Continuity of Care Document ---
Author Organization [facility] Address [address] [place] [address]- Care Team Providers Care Cloth Framer Name Role Phone Ragini Dumont NP Primary Care Physician [place] [facility] [place] [facility] [place] 07/29/19 - 08/28/19 [facility] [address] [place] [address] [facility] Attending Physician: Anthony Michelle Admitting Physician: Anthony Michelle Referring Physician: AdmAnthony amin Allergies, Adverse Reactions, Alerts Substance Reaction Severity [...]
--- OUTSIDE RECORDS SUMMARY | 2023-10-12 13:22 | XMS_ITS | Continuity of Care Document ---
Author Organization [facility] Address [address] [place] [address]- Care Team Providers Care Urban Forester Name Role Phone Julia MCGEE, Ragini Primary Care Physician Encounter [place] Date(s): 05/22/19 - 08/22/19 [facility] [address] [place] [address] [facility] Attending Physician: Albaro Gómez MD Admitting Physician: Albaro Gómez MD Allergies, Adverse Reactions, Alerts Substance Reaction [...]
--- OUTSIDE RECORDS SUMMARY | 2023-10-12 13:22 | XMS_ITS | Continuity of Care Document ---
Author Organization [facility] Address [address] [place] [address]- Care Team Providers Care Talent Management Specialist Name Role Phone Ragini Dumont NP Primary Care Physician [phone] Encounter [facility] [place] Date(s): 12/17/20 - 01/16/21 [facility] [address] [place] [address]- Attending Physician: Anthony Michelle Admitting Physician: Anthony Michelle Referring Physician: AdmtrAnthony Allergies, Adverse Reactions, Alerts Substance Reaction Severity [...] Start Date: 05/08/19 Status: Ordered Vitamin D 21864 iu oral capsule See Instructions, 50,000 International_Units [...]
--- OUTSIDE RECORDS SUMMARY | 2023-10-12 13:22 | XMS_ITS | Continuity of Care Document ---
Author Organization [facility] Address [address] [place] [address]- Care Team Providers Care Surgical Supplies Sterilizer Name Role Phone Julia MCGEE, Ragini Primary Care Physician [place] [facility] [place] - 04/15/20 [facility] [address] [place] [id number] Attending Physician: Anthony Michelle Admitting Physician: Anthony [...]
--- OUTSIDE RECORDS SUMMARY | 2023-10-12 13:22 | XMS_ITS | Continuity of Care Document ---
Author Organization [facility] Address [address] [place] [address]- Care Team Providers Care Expediter Clerk Name Role Phone Julia MCGEE, Ragini Primary Care Physician [phone] Encounter [facility] [place] Date(s): 02/18/20 - 03/19/20 [facility] [address] [place] [id number] Allergies, Adverse Reactions, Alerts Substance Reaction Severity [...]
--- OUTSIDE RECORDS SUMMARY | 2023-10-12 13:22 | XMS_ITS | Continuity of Care Document ---
Author Organization [facility] Address [address] [place] [address]- Care Team Providers Care Ham Stringer Name Role Phone Julia MCGEE, Ragini Primary Care Physician Encounter [facility] [place] Date(s): 12/04/19 - 03/22/20 [facility] [address] [place] [id number] Attending Physician: Albaro Gómez MD Admitting Physician: [...]
--- OUTSIDE RECORDS SUMMARY | 2023-10-12 13:22 | XMS_ITS | Continuity of Care Document ---
Author Organization [facility] Address [address] [place] [id number]- Care Team Providers Care Asbestos Surveyor Name Role Phone Julia MCGEE, Ragini Primary Care Physician [phone] Encounter [facility] [place] Date(s): 05/14/20 - 06/13/20 [facility] [address] [place] [id number] Allergies, Adverse Reactions, Alerts Substance [...]
--- OUTSIDE RECORDS SUMMARY | 2023-10-12 13:22 | XMS_ITS | Continuity of Care Document ---
Author Organization [facility] Address [address] [place] [address]- Care Team Providers Care District Superintendent Name Role Phone Ragini Dumont NP Primary Care Physician [place] [facility] [place] - 11/11/22 [facility] [address] [place] [id number] Attending Physician: Anthony Michelle Admitting Physician: Anthony [...] bedtime, # 450 tablet, 1 Refills, Maintenance, 07/05/22 8:46:00 EDT, [facility] #[id number], dose increase, 168, cm, 06/07/22 11:03:00 EDT, Height, 74.5, kg, 03/16/22 21:23:00 EST, Dry Weight Start Date: 07/05/22 Status: Ordered topiramate 100 mg oral tablet See Instructions, 1 tablet By Mouth 3 times a day and 2 tablets at bedtime 90 days, # 450 tablet, 1Refills, Maintenance, 07/05/22 8:46:00 EDT, Tablet, [facility] #[id number], 168, cm, 06/07/22 11:03:00 EDT, Height, 74.5, kg, 03/16/22 21:23:00... Start Date: 07/05/22 Status: Ordered Vitamin D 77356 iu oral capsule See Instructions, 15,000 International_Units [...] Active PTSD (post-traumatic stress disorder) Confirmed Active Social History Social History Type Response Smoking Status Current every day sm oker; Tobacco user in household: No entered on: 08/27/14 Sex Patient Care team information Care Team Personnel Name: Ragini Dumont NP Position: [facility] Outreach Member Role: PCP Address: Address: [address] [place] [address] Internal Medicine [address] Name: Tia Nunn MA Position: [facility] RN Member Role: Primary Care Nurse Name: Ivis Trent Position: [facility] RN Member Role: Primary Care Nurse Care Team Related Persons Name: ISAAC SALAS Address: home [address] [place] [id number] Name: REAGAN WEST Address: home [address] [place] [id number]
--- OUTSIDE RECORDS SUMMARY | 2023-10-12 13:22 | XMS_ITS | Continuity of Care Document ---
Author Organization [facility] Address [address] [place] [address]- Care Team Providers Care Torpedoman'S Mate Name Role Phone Ragini Dumont NP Primary Care Physician Encounter [facility] [place] Date(s): 10/31/19 - 11/30/19 [facility] [address] [place] [id number]- [facility] Attending Physician: Anthony Michelle Admitting Physician: Anthony [...]
--- OUTSIDE RECORDS SUMMARY | 2023-10-12 13:22 | XMS_ITS | Continuity of Care Document ---
Author Organization [facility] Address [address] [place] [address]- Care Team Providers Care Wood Lathe Operator Name Role Phone Ragini Dumont NP Primary Care Physician [place] [facility] [place](s): 12/15/21 - 01/14/22 [facility] [address] [place] [address] Attending Physician: Anthony Michelle Admitting [...] bedtime, # 450 tablet, 1 Refills, Maintenance, 08/20/21 13:06:00 EDT, [facility] #[id number], dose increase, 167, cm, 08/05/21 13:55:00 EDT, Height Start Date: 08/20/21 Status: Ordered topiramate 100 mg oral tablet See Instructions, 1 tablet By Mouth 3 times a day and 2 tablets at bedtime 90 days, # 450 tablet, 1Refills, Maintenance, 08/20/21 13:06:00 EDT, Tablet, [facility] #[id number], 167, cm, 08/05/2212:55:00 EDT, Height Start Date: 08/20/21 Status: Ordered Vitamin D 72854 iu oral capsule See Instructions, 15,000 International_Units [...] on: 08/27/14 Sex Patient Care team information Personnel Name: Ragini Dumont NP Address: Address: [address] [place] [address] [address]
--- OUTSIDE RECORDS SUMMARY | 2023-10-12 13:22 | XMS_ITS | Continuity of Care Document ---
Author Organization [facility] Address [address] [place] [address]- Care Team Providers Care Escort Patients Name Role Phone Ragini Dumont NP Primary Care Physician [place] [facility] [place] 12[place]03[place]20 - 01/02/21 [facility] [address] [place] [id number]- Allergies, Adverse Reactions, Alerts Substance Reaction Severity [...] Start Date: 05/08/19 Status: Ordered Vitamin D 85740 iu oral capsule See Instructions, 50,000 International_Units [...]
--- OUTSIDE RECORDS SUMMARY | 2023-10-12 13:22 | XMS_ITS | Continuity of Care Document ---
Author Organization [facility] Address [address] [place] [address]- Care Team Providers Care Dough Mixer Name Role Phone Julia MCGEE, Ragini Primary Care Physician Encounter [facility] [place] Date(s): 04/13/21 - 05/13/21 [facility] [address] [place] [address]- Allergies, Adverse Reactions, Alerts Substance Reaction Severity [...] Start Date: 05/08/19 Status: Ordered Vitamin D 88269 iu oral capsule See Instructions, 15,000 International_Units [...]
[2023-10-12 13:25] VITALS: BP 109/54; PULSE 68; RESP 17; O2SAT 96
[2023-10-12 13:55] VITALS: BP 119/57; PULSE 70; RESP 17; O2SAT 98
--- NOTE | 2023-10-12 13:58 | A.OFFVIS_ITS ---
Vital Signs 10/12/23 13:25 10/12/23 13:55 BP 109/54 L 119/57 L Blood Pressure Location Rt brachial Rt brachial Position Sitting Sitting Respiration 17 17 Pulse 68 70 Pulse Source Pulse Oximeter Pulse Oximeter Pulse Oximetry (%) 96 98 Oxygen Delivery Method Room Air Room Air Comment Pre-op Post-op Intake Visit Reasons: Left Dx C4-C5-C6 MBB Allergies zolpidem [From Ambien] Adverse Reaction (Verified 10/06/23 09:38) Nightmare HPI HPI Left Dx C4-C5-C6 MBB: Details: Patient presents for scheduled procedure. Denies any recent cough, cold, infection, fever or other significant changes in medical history since last office visit. [facility] Medical History Multiple personality disorder Bipolar 1 disorder Anxiety Social History Patient Tobacco Use Status: Current everyday Tobacco user Substance Use Type: Marijuana Physical Exam Vital Signs: Last Vital Signs Pulse 70 10/12/23 13:55 Resp 17 10/12/23 13:55 BP 119/57 L 10/12/23 13:55 Pulse Ox 98 10/12/23 13:55 Oxygen Delivery Method Room Air 10/12/23 13:55 Office Procedures Cervical/Thoracic Facet Inj Details: Diagnostic Cervical Medial Branch Block, Left C4, C5, C6 medial branches After obtaining written consent, pre-procedure blood pressure and pulse were recorded and are in the nursing record for review. The patient was placed in a lateral position. The respective cervical area was prepped with chloraprep and draped in sterile fashion. The skin over the target medial branch nerves was anesthetized with 0.5% lidocaine. A 25 gauge 1.5 inch needle was inserted into the target medial branch nerve under fluoroscopic guidance. No paresthesias were elicited with needle placement and aspiration was negative for blood and CSF. Next, 0.2cc of omnipaque 180 was injected to verify positioning. Next 0.5 ml 0.5% ropivicaine was injected (0.5 cc total per level). The identical procedure was performed at the remaining levels. The skin was cleansed and a sterile bandage was applied. Following the procedure the patient's vital signs were stable. The patient tolerated the procedure well and no complications were encountered. Following the procedure the patient's vital signs were stable. The patient was discharged home in good condition with post-procedural instructions. Time Out: Immediately prior to the procedure, the following was verbally confirmed that there is a signed consent form and that the correct patient, planned procedure, site and side are consistent with documentation and that necessary equipment and/or blood products are available prior to the start of the case. Complications: none EBL: <5 cc 83921 - with Fluoroscopy 01936 - second level, with Fluoroscopy Procedure code (CPT) selection complete Assessment & Plan Assessment & Plan (1) Cervical spondylosis: Code(s): M47.812 - Spondylosis without myelopathy or radiculopathy, cervical region Category: Medical Plan Patient is status post left diagnostic C4, C5, C6 medial branch blocks. Patient tolerated procedure well and was discharged home in stable condition with discharge instructions. All questions were answered. We will follow-up via telephone or in clinic to assess response to therapy. A follow-up appointment was made during today's visit. Coding Level of Care Code Procedure Only Diagnoses Cervical spondylosis M47.812 CPT Codes Facet Injection Cervical/Thoracic - CPT: 75480 - with Fluoroscopy ([id number]) Facet Injection Cervical/Thoracic - CPT: 86603 - second level, with Fluoroscopy ([id number])
== END 2023-10-12 14:00 | disposition home or self-care (01) ==
LOC: HO.PMCPRC 13:20
PROVIDERS: Visit Provider Internal Medicine
DX: M47.812 Spondylosis without myelopathy or radiculopathy, cervical region (principal)
CPT/HCPCS: 64490; 64491

== ENCOUNTER 2023-10-16 09:03 | Outpatient (AMB) | payer MEDICARE, SELFPAY ==
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
[2023-10-16 09:09] VITALS: BP 102/62; PULSE 81; RESP 14; O2SAT 96; BMI 28.0
== END 2023-10-16 09:20 | disposition home or self-care (01) ==
PROVIDERS: PCP Physical Medicine & Rehabilitation; Visit Provider Internal Medicine
DX: M47.812 Spondylosis without myelopathy or radiculopathy, cervical region (principal)
CPT/HCPCS: 99213

== ENCOUNTER → 2023-10-16 09:03 | Outpatient (BNVA) | payer MEDICARE, SELFPAY | PROVIDERS: Visit Provider Internal Medicine | DX: M47.812 Spondylosis without myelopathy or radiculopathy, cervical region (principal) | CPT/HCPCS: 99212 ==

== ENCOUNTER 2023-11-30 06:11 | Outpatient (REF) | payer MEDICARE, SELFPAY ==
--- NOTE | ~2023-11-30 | FL_ITS ---
EXAMINATION: XR FLUOROSCOPY WITH IMAGES CLINICAL INFORMATION: Cervical radiculopathy. COMPARISON: 10/12/2023. TECHNIQUE: Fluoroscopy provided to: Dr. Vazquez Fluoroscopy time: 0.1 minutes DAP: 0.002 mGycm2 Images: 2 FINDINGS: 2 coned-down images left lateral cervical spine show nerve root sheath contrast injection with needle in place at C3, C4, and C5. FL/FL guidance in treatment room IMPRESSION: Fluoroscopic guidance. Please refer to the full operative report for details. Electronically signed by: Ramon Salinas MD 12/07/2023 03:35 PM EDT
== END 2023-11-30 06:12 | disposition home or self-care (01) ==
LOC: CF 06:11
PROVIDERS: Visit Provider Internal Medicine
DX: M47.812 Spondylosis without myelopathy or radiculopathy, cervical region (principal)
CPT/HCPCS: 64490; 64491; J2795; Q9967

== ENCOUNTER 2023-11-30 09:53 | Outpatient (AMB) | payer MEDICARE, SELFPAY ==
[2023-11-30 11:11] VITALS: BP 117/68; PULSE 80; O2SAT 99
--- NOTE | 2023-11-30 11:11 | A.OFFVIS_ITS ---
Vital Signs 11/30/23 11:11 11/30/23 11:12 Height 5 ft 5 in BP 117/68 102/71 Blood Pressure Location Lt brachial Lt brachial Position Sitting Sitting Pulse 80 65 Pulse Source Pulse Oximeter Pulse Oximeter Pulse Oximetry (%) 99 97 Oxygen Delivery Method Room Air Room Air Comment pre-op post-op Intake Visit Reasons: Repeat Left Dx C4-C5-C6 MBB Allergies zolpidem [From Ambien] Adverse Reaction (Verified 10/16/23 09:12) Nightmare HPI HPI Repeat Left Dx C4-C5-C6 MBB: Details: Patient presents for scheduled procedure. Denies any recent cough, cold, infection, fever or other significant changes in medical history since last office visit. [facility] Medical History Multiple personality disorder Bipolar 1 disorder Anxiety Social History Patient Tobacco Use Status: Current everyday Tobacco user Substance Use Type: Marijuana Physical Exam Vital Signs: Last Vital Signs Pulse 65 11/30/23 11:12 BP 102/71 11/30/23 11:12 Pulse Ox 97 11/30/23 11:12 Oxygen Delivery Method Room Air 11/30/23 11:12 Office Procedures Cervical/Thoracic Facet Inj Details: Diagnostic Cervical Medial Branch Block, Left C4, C5, C6 medial branches After obtaining written consent, pre-procedure blood pressure and pulse were recorded and are in the nursing record for review. The patient was placed in a lateral position. The respective cervical area was prepped with chloraprep and draped in sterile fashion. The skin over the target medial branch nerves was anesthetized with 0.5% lidocaine. A 25 gauge 1.5 inch needle was inserted into the target medial branch nerve under fluoroscopic guidance. No paresthesias were elicited with needle placement and aspiration was negative for blood and CSF. Next, 0.2cc of omnipaque 180 was injected to verify positioning. Next 0.5 ml 0.5% bupivicaine was injected (0.5 cc total per level). The identical procedure was performed at the remaining levels. The skin was cleansed and a sterile bandage was applied. Following the procedure the patient's vital signs were stable. The patient tolerated the procedure well and no complications were encountered. Following the procedure the patient's vital signs were stable. The patient was discharged home in good condition with post-procedural instructions. Time Out: Immediately prior to the procedure, the following was verbally confirmed that there is a signed consent form and that the correct patient, planned procedure, site and side are consistent with documentation and that necessary equipment and/or blood products are available prior to the start of the case. Complications: none EBL: <5 cc 16124 - with Fluoroscopy 90298 - second level, with Fluoroscopy Procedure code (CPT) selection complete Assessment & Plan Assessment & Plan (1) Cervical spondylosis: Code(s): M47.812 - Spondylosis without myelopathy or radiculopathy, cervical region Category: Medical Plan Patient is status post repeat diagnostic left C4, C5, C6 medial branch blocks. Patient tolerated procedure well and was discharged home in stable condition with discharge instructions. All questions were answered. We will follow-up via telephone or in clinic to assess response to therapy. A follow-up appointment was made during today's visit. Orders: Orders FL guidance in treatment room Today M47.812 - Spondylosis without myelopathy or radiculopathy, cervical region Coding Level of Care Code Procedure Only Diagnoses Cervical spondylosis M47.812 CPT Codes Facet Injection Cervical/Thoracic - CPT: 00618 - with Fluoroscopy ([id number]) Facet Injection Cervical/Thoracic - CPT: 88254 - second level, with Fluoroscopy ([id number])
[2023-11-30 11:12] VITALS: BP 102/71; PULSE 65; O2SAT 97
== END 2023-11-30 11:13 | disposition home or self-care (01) ==
LOC: HO.PMCPRC 09:53
PROVIDERS: PCP Physical Medicine & Rehabilitation; Visit Provider Internal Medicine
DX: M47.812 Spondylosis without myelopathy or radiculopathy, cervical region (principal)
CPT/HCPCS: 64490; 64491

== ENCOUNTER 2024-06-17 11:22 | Outpatient (AMB) | payer MEDICARE, SELFPAY ==
[2024-06-17 11:28] VITALS: BP 123/58; PULSE 68; RESP 16; O2SAT 98; BMI 27.5
--- NOTE | 2024-06-17 11:28 | A.OFFVIS_ITS ---
Vital Signs 06/17/24 11:28 Height 5 ft 5 in Weight 165 lb BMI 27.5 BP 123/58 L Blood Pressure Location Lt brachial Position Sitting Respiration 16 Pulse 68 Pulse Source Pulse Oximeter Pulse Oximetry (%) 98 Oxygen Delivery Method Room Air Intake Visit Reasons: FU back pain Aviation Maintenance Technician Required: No Allergies zolpidem [From Ambien] Adverse Reaction (Verified 06/17/24 11:29) Nightmare Medication List - Last Reconciled 06/17/24 by Surekha Padgett LPN cholecalciferol (vitamin D3) PO cyclobenzaprine 10 mg PO Q8H diclofenac sodium 50 mg PO BID gabapentin mg PO topiramate mg PO HPI HPI FU back pain: Details: History of Present Illness The patient is a 44-year-old male presenting with chronic neck pain. The pain extends from the neck down through the shoulders and mid-back. Initially, during diagnostic procedures with cervical medial branch blocks targeting C4 to C6 on the left side, there was a marked 80% symptom relief from the two sets of injections. However, discrepancies in reporting pain relief percentages during the second evaluation led to misunderstandings. Further analysis confirmed the necessity for radiofrequency ablation as a therapeutic avenue. The patient's pain worsens with specific movements such as bending and twisting. Their functional abilities are noticeably restricted due to persistent soreness and intermittent sharp pains, adding a degree of complexity in daily activities. The patient aims to restore normal function by resuming the treatment plan with radiofrequency ablation after clarifying earlier misunderstandings about the documented results. Pain Description - Onset and Timing: Persistent neck and back pain, chronic in nature. Occasionally experiences sharp pains. - Quality and Character: Soreness and stiffness with intermittent sharp pains. - Primary Location: Neck extending through shoulders to mid-back. - Areas of Radiation: None specified. - Aggravating Factors: Bending backward, turning movements. - Relieving Factors: Prior cervical medial branch blocks provided significant relief. - Interference with Activities: Impairs functional abilities, impacting daily activities. Physical Exam - Musculoskeletal- Cervical facet loading positive. Results Pain Management - Affect: The patient experiences psychological distress due to chronic pain and seeks relief to improve functional status. - Analgesia: Initially gained 80% relief from cervical medial branch blocks; focusing on pursuing radiofrequency ablation for sustained relief. - Adverse Effects: None reported. - Activities of Daily Living: Pain significantly impacts daily functioning; seeking improvement in capabilities. - Aberrant Drug Related Behaviors: None disclosed. [facility] Medical History Multiple personality disorder Bipolar 1 disorder Anxiety Social History Patient Tobacco Use Status: Current everyday Tobacco user Substance Use Type: Marijuana Physical Exam Vital Signs: Last Vital Signs Pulse 68 06/17/24 11:28 Resp 16 06/17/24 11:28 BP 123/58 L 06/17/24 11:28 Pulse Ox 98 06/17/24 11:28 Oxygen Delivery Method Room Air 06/17/24 11:28 BMI result Body Mass Index 27.5 Assessment & Plan Assessment & Plan (1) Cervical spondylosis: Code(s): M47.812 - Spondylosis without myelopathy or radiculopathy, cervical region Category: Medical Plan Plan Confirming the therapeutic relief from cervical medial branch blocks, I propose to resubmit an authorization request for radiofrequency ablation at C4, C5, C6 on the left side based on 80% relief on 2 rounds of diagnostic MBBs. This aim is to sustain significant symptom relief and improve the patient's functional capabilities. The patient expressed understanding and agreement with the proposed course, having clarified prior communication mismatches and acknowledging the need for procedural authorization to proceed. This plan prioritizes resolving chronic neck pain through validated diagnostic results and patient-reported outcomes. Patient was informed and verbally consented to the use of an ambient scribe for clinic note documentation during this visit. Discussion Notes During the visit, we extensively reviewed the patient's previous experiences with diagnostic cervical medial branch blocks at C4, C5, and C6 on the left side, which demonstrated significant diagnostic relief. The patient clarified existing discrepancies regarding reported relief percentages and expressed a strong preference to continue with radiofrequency ablation. Throughout the discussion, we explored the risks, benefits, and expected outcomes of the procedure, reaffirming the patient's decision. I emphasized the need to resubmit an authorization request due to previous misunderstandings. The patient agreed to move forward pending authorization, appreciating the potential for improved daily function and quality of life. Patient Instructions - Await contact regarding the authorization and scheduling of radiofrequency ablation. - Engage in activities that minimize cervical strain to avoid exacerbating symptoms. - Contact the clinic if symptoms worsen or if additional concerns arise prior to the procedure. Coding Level of Care Code Est Pt Level 3 (39589) Diagnoses Cervical spondylosis M47.812
== END 2024-06-17 12:04 | disposition home or self-care (01) ==
PROVIDERS: PCP Physical Medicine & Rehabilitation; Referring Provider Physical Medicine & Rehabilitation; Visit Provider Internal Medicine
DX: M47.812 Spondylosis without myelopathy or radiculopathy, cervical region (principal)
CPT/HCPCS: 99213

== ENCOUNTER → 2024-06-17 11:22 | Outpatient (BNVA) | payer OTHER, SELFPAY | PROVIDERS: PCP Physical Medicine & Rehabilitation; Referring Provider Physical Medicine & Rehabilitation; Visit Provider Internal Medicine | DX: M47.812 Spondylosis without myelopathy or radiculopathy, cervical region (principal) | CPT/HCPCS: 99212 ==

== ENCOUNTER 2024-06-27 06:20 | Outpatient (REF) | payer MEDICARE, SELFPAY ==
--- NOTE | ~2024-06-27 | FL_ITS ---
EXAMINATION: FL GUIDANCE ONLY HISTORY: M54.12 - Radiculopathy, cervical region COMPARISON: None available. TECHNIQUE: Fluoroscopy time: 0.4 minutes. Cumulative Dose: 2.03 mGy. DAP: 0.0200 mGym2 Images: 5. FINDINGS: Images demonstrate multiple needles in the left neck. FL/FL guidance in treatment room IMPRESSION: Fluoroscopy during procedure. Please see procedure report for additional information. Electronically signed by: Stevie Cadet MD 06/27/2024 02:37 PM EDT
== END 2024-06-27 06:21 | disposition home or self-care (01) ==
LOC: CF 06:20
PROVIDERS: Visit Provider Internal Medicine
DX: M47.812 Spondylosis without myelopathy or radiculopathy, cervical region (principal); M54.12 Radiculopathy, cervical region
CPT/HCPCS: 64633; 64634; J2003

== ENCOUNTER 2024-06-27 11:26 | Outpatient (AMB) | payer MEDICARE, SELFPAY ==
[2024-06-27 11:35] VITALS: BP 114/68; PULSE 77; RESP 16; O2SAT 98
--- NOTE | 2024-06-27 11:35 | A.OFFVIS_ITS ---
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 Denies any recent cough, cold, infection, fever or other significant changes in medical history since last office visit. [facility] Medical History Multiple personality disorder Bipolar 1 disorder Anxiety Social History Patient Tobacco Use Status: Current everyday Tobacco user Substance Use Type: Marijuana Physical Exam Vital Signs: Last Vital Signs Pulse 75 06/27/24 13:18 Resp 16 06/27/24 13:18 BP 140/93 H 06/27/24 13:18 Pulse Ox 99 06/27/24 13:18 Oxygen Delivery Method Room Air 06/27/24 13:18 Office Procedures Details: Radiofrequency lesioning cervical medial branch nerves, Left C4, C5 and C6 After obtaining written consent, pre-procedure blood pressure and heart rate were stable and recorded in the nursing record. The patient was placed in the prone position. The?cervical?area was prepped with chloraprep and draped in sterile fashion. The skin over the target for each medial branch nerve was anesthetized with 0.75% lidocaine. An 18 gauge radiofrequency cannula was advanced to each target site under AP, lateral and ARELY fluoroscopic guidance. No paresthesias were elicited with needle placement and aspiration was negative for heme and CSF. Impedences were verified under 600 ohms. Motor testing (2 Hz) confirmed needle placement at each site within the appropriate voltage thresholds. Each site was injected with 1 ml 2% preservative-free lidocaine. Radiofrequency lesioning was performed for 100 seconds at 80 deg Celcius. The needle was removed, skin cleansed and a sterile bandage was applied. The patient tolerated the procedure well and no complications were encountered. Following the procedure the patient's vital signs were stable. The patient was discharged home in good condition with post-procedural instructions. Time Out: Immediately prior to the procedure, the following was verbally confirmed that there is a signed consent form and that the correct patient, planned procedure, site and side are consistent with documentation and that necessary equipment and/or blood products are available prior to the start of the case. Complications: none EBL: <5 cc 26035 - RFA Cervical Medial Branches 44741 - Cervical Medial Branches ADDNL Procedure code (CPT) selection complete Assessment & Plan Assessment & Plan (1) Cervical spondylosis: Code(s): M47.812 - Spondylosis without myelopathy or radiculopathy, cervical region Category: Medical Plan Patient is status post left C4, C5, C6 medial branches radiofrequency ablation. Patient tolerated procedure well and was discharged home in stable condition with discharge instructions. All questions were answered. We will follow-up via telephone or in clinic to assess response to therapy. A amber whitlock-up appointment was made during today's visit. Coding Level of Care Code Procedure Only Diagnoses Cervical spondylosis M47.812 CPT Codes Radiofrequency Ablation - Rad-Ablation 1: 37024 - RFA Cervical Medial Branches ([id number]) Radiofrequency Ablation - Rad-Ablation 2: 43316 - Cervical Medial Branches ADDNL ([id number])
[2024-06-27 13:18] VITALS: BP 140/93; PULSE 75; RESP 16; O2SAT 99
== END 2024-06-27 13:18 | disposition home or self-care (01) ==
LOC: HO.PMCPRC 11:26
PROVIDERS: PCP Physical Medicine & Rehabilitation; Visit Provider Internal Medicine
DX: M47.812 Spondylosis without myelopathy or radiculopathy, cervical region (principal)
CPT/HCPCS: 64633; 64634

== ENCOUNTER 2024-07-24 08:45 | Outpatient (AMB) | payer MEDICARE, SELFPAY ==
--- NOTE | 2024-07-24 09:05 | MHC.OFFVIS ---
Vital Signs 07/24/24 09:06 Height 5 ft 5 in Weight 171 lb BMI 28.5 BP 117/72 Blood Pressure Location Lt brachial Position Sitting Respiration 16 Pulse 72 Pulse Source Pulse Oximeter Pulse Oximetry (%) 98 Oxygen Delivery Method Room Air Intake Visit Reasons: s/p cervical RFA Drug Safety Associate Required: No Allergies zolpidem [From Ambien] Adverse Reaction (Verified 07/24/24 09:06) Nightmare Medication List - Last Reconciled 07/24/24 by Surekha Padgett LPN cholecalciferol (vitamin D3) PO cyclobenzaprine 10 mg PO Q8H diclofenac sodium 50 mg PO BID gabapentin mg PO topiramate mg PO HPI HPI s/p cervical RFA: Details: History of Present Illness The patient is a 44 year old male presenting with follow-up for neck pain predominantly on the right side. He reports mixed outcomes from previous treatments, noting improvement primarily on the left side with continued tension following the RFA. 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 The patient describes his left neck pain as significantly improved, with a reduction of approximately 60-70%. Currently, the pain is primarily right-sided, exhibiting muscle spikes after physical activity or when at rest. Occasional pressure and knots are noted on the left side without significant pain. There is recognition that previous bilateral pain may have been overshadowed by paramount pain from the right side. Pain Description - Onset: Historically bilateral, now primarily right-sided; reduced over time. - Quality: Right-sided muscle spikes, tension in the neck. Occasional knotting on the left side; described as pressurized rather than painful. - Exacerbating Factors: Long walks, periods of sitting or resting. - Relieving Factors: Massage therapy in the past, although a specific promise 29 form is needed to continue. - Impact on Activities: Pain reduction noted during daily life by approximately 60-70%. Physical Exam - Appears afebrile. - Alert and oriented. - Mood and affect appropriate. - Follows and participates in conversation appropriately. - Respiratory effort is unlabored. - Able to transition from sit to stand unassisted. - Ambulates with bilaterally normal heel strike and toe off. - Able to stand and walk on toes and heels. Results Pain Management - Affect: No specific mood or psychological impact reported. - Analgesia: The use of radiofrequency ablation (RFA) has reduced pain by 60-70%. The pain primarily resides on the right side. - Adverse Effects: None reported from current pain management. - Activities of Daily Living: Pain is affecting physical activity and relaxation, requiring massage therapy for ongoing management. - Aberrant Drug Related Behaviors: None reported. REPLACED BY [facility] Medical History Multiple personality disorder Bipolar 1 disorder Anxiety Social History Patient Tobacco Use Status: Current everyday Tobacco user Substance Use Type: Marijuana Physical Exam Vital Signs: Last Vital Signs Pulse 72 07/24/24 09:06 Resp 16 07/24/24 09:06 BP 117/72 07/24/24 09:06 Pulse Ox 98 07/24/24 09:06 Oxygen Delivery Method Room Air 07/24/24 09:06 BMI result Body Mass Index 28.5 Assessment & Plan Assessment & Plan (1) Cervical spondylosis: Code(s): M47.812 - Spondylosis without myelopathy or radiculopathy, cervical region Category: Medical (2) Cervical radiculitis: Code(s): M54.12 - Radiculopathy, cervical region Category: Medical Plan Plan - Prepare and submit form 29 for the patient so they may access massage therapy. He will fax us the form. - Monitor the reduced pain symptoms, specifically the predominantly right-sided muscle involvement. - Advise caution regarding physical activities to mitigate exacerbation of symptoms. Patient was informed and verbally consented to the use of an ambient scribe for clinic note documentation during this visit. Discussion Notes The patient and I discussed the ongoing management of his neck pain, noting the significant reduction of symptoms and the remaining issues primarily affect the right side. We acknowledged that massage therapy had previously provided symptom relief, contingent on the completion of a promise 29 form which will be facilitated. We reviewed the need to manage physical activities and the avoidance of chiropractic treatment that had previously exacerbated his condition. The patient agreed to keep track of any changes in symptoms and activity tolerance, and to continue any beneficial therapies. Patient Instructions - Obtain and submit the promise 29 form for approved massage therapy. - Monitor for changes in pain intensity and location. - Avoid activity level increases that may trigger pain exacerbation. - Follow-up as needed if symptoms worsen or additional care is required. Coding Level of Care Code Est Pt Level 3 (19639) Diagnoses Cervical spondylosis M47.812 Cervical radiculitis M54.12
[2024-07-24 09:06] VITALS: BP 117/72; PULSE 72; RESP 16; O2SAT 98; BMI 28.5
== END 2024-07-24 09:42 | disposition home or self-care (01) ==
LOC: HO.PMC 08:46
PROVIDERS: PCP Physical Medicine & Rehabilitation; Visit Provider Internal Medicine
DX: M47.812 Spondylosis without myelopathy or radiculopathy, cervical region (principal); M54.12 Radiculopathy, cervical region
CPT/HCPCS: 99213

== ENCOUNTER → 2024-07-24 08:45 | Outpatient (BNVA) | payer MEDICARE, SELFPAY | PROVIDERS: PCP Physical Medicine & Rehabilitation; Visit Provider Internal Medicine | DX: M47.812 Spondylosis without myelopathy or radiculopathy, cervical region (principal); M54.12 Radiculopathy, cervical region | CPT/HCPCS: 99212 ==